=== PATIENT | female | born 1935 | race Caucasian/White ===

== ENCOUNTER 2017-07-21 10:06 | Day surgery (SDC) | payer MEDICARE ==
[~2017-07-21] VITALS: Ht 149.9 cm; Wt 65.8 kg
--- NOTE | ~2017-07-21 | EGD ---
EGD REPORT [facility] [address] [address] NAME: SAMMI WARREN : 39 STATUS : REG [facility] [place] PAT#: [id number] AGE: 82 ADM/REG DATE : 07/21/17 MR#: [id number] REPORT SERV DATE: 07/21/17 DICTATED BY: MAAME MEDRANO DATE: 07/21/17 REPORT STATUS : Draft TRANSCRIBED BY: [facility] DATE: 07/21/17 Endoscopy Center Patient Name: Sammi Warren Date of : 1935 Attending MD: MAAME MEDRANO MD Procedure Date No Time: 07/21/2017 Procedure: Upper GI endoscopy Indications: For therapy of pyloric stenosis, Follow-up of acute gastric ulcer Referring MD: CARINE CHAKRABORTY Medicines: Propofol per Anesthesia Complications: No immediate complications. Estimated blood loss: Minimal. Procedure: Pre-Anesthesia Assessment: - After reviewing the risks and benefits, the patient was deemed in satisfactory condition to undergo the procedure. - Prior to the procedure, a History and Physical was performed, and patient medications and allergies were reviewed. The patient's tolerance of previous anesthesia was also reviewed. The risks and benefits of the procedure and the sedation options and risks were discussed with the patient. All questions were answered, and informed consent was obtained. Prior Anticoagulants: The patient has taken no previous anticoagulant or antiplatelet agents. ASA Grade Assessment: III - A patient with severe systemic disease. After reviewing the risks and benefits, the patient was deemed in satisfactory condition to undergo the procedure. After obtaining informed consent, the endoscope was passed under direct vision. Throughout the procedure, the patient's blood pressure, pulse, and oxygen saturations were monitored continuously. The GIF [id number] was introduced through the mouth, and advanced to the third part of duodenum. The upper GI endoscopy was somewhat difficult due to pyloric stenosis which was traversed after balloon dilationi. The patient tolerated the procedure well. Findings: A non-obstructing Schatzki ring (acquired) was found at the gastroesophageal junction. A small hiatus hernia was present. Diffuse mild inflammation characterized by granularity was found in the gastric antrum. EGD REPORT [address] [address] NAME: SAMMI WARREN : 39 STATUS : REG [facility] [place] PAT#: [id number] AGE: 82 ADM/REG DATE : 07/21/17 MR#: [id number] REPORT SERV DATE: 07/21/17 DICTATED BY: MAAME MEDRANO DATE: 07/21/17 REPORT STATUS : Draft TRANSCRIBED BY: [facility] DATE: 07/21/17 A benign-appearing, intrinsic mild stenosis was found at the pylorus. This was traversed only after dilation. A TTS dilator was passed through the scope with a guidewire with fluroscopic guidance. Dilation with a 12-13.5-15 mm pyloric balloon dilator was performed under fluoroscopic guidance to a maximum inflation of 13.5 mm. Estimated blood loss was minimal. The previously noted active pyloric ulcer had healed. The examined duodenum was normal to the third portion. Impression: - Non-obstructing Schatzki ring. - Hiatus hernia. - Gastritis. - Gastric stenosis was found at the pylorus. Dilated. - Normal examined duodenum. Recommendation: - Discharge patient to home (ambulatory). - Full liquid diet today then return to previous diet. - Continue present medications including Protonix (pantoprazole) 40 mg daily. - Return to GI clinic PRN. - Patient has a contact number available for emergencies. The signs and symptoms of potential delayed complications were discussed with the patient. Return to normal activities tomorrow. Written discharge instructions were provided to the patient. Procedure Code(s): --- Professional --- 38664, Esophagogastroduodenoscopy, flexible, transoral; with dilation of gastric/duodenal stricture(s) (eg, balloon, bougie) 07413, Intraluminal dilation of strictures and/or obstructions (eg, esophagus), radiological supervision and interpretation Diagnosis Code(s): --- Professional --- K22.2, Esophageal obstruction K44.9, Diaphragmatic hernia without obstruction or gangrene K29.70, Gastritis, unspecified, without bleeding K31.1, Adult hypertrophic pyloric stenosis K25.3, Acute gastric ulcer without hemorrhage or perforation CPT copyright 2013 [employer]. All rights reserved. The codes documented in this report are preliminary and upon leak operator paraffin plant review may be revised to meet current compliance requirements. EGD REPORT [facility] [address] [place]. [address] NAME: SAMMI WARREN : 39 STATUS : REG [facility] [place] PAT#: [id number] AGE: 82 ADM/REG DATE : 07/21/17 MR#: [id number] REPORT SERV DATE: 07/21/17 DICTATED BY: MAAME MEDRANO DATE: 07/21/17 REPORT STATUS : Draft TRANSCRIBED BY: [employer] DATE: 07/21/17 MAAME MEDRANO MD 07/21/2017 12:49 PM This report has been signed electronically. Number of Addenda: 0 Note Initiated On: 07/21/2017 11:55 AM Scope Withdrawal Time 0 hours 0 minutes 0 seconds [facility] [place] [address]
[~2017-07-21 10:06] MED LIST: ACTOS15 PO; AMARYL4 PO; ATEN50 PO; AZO-STANDARD95 MG PO; CARTIA XT180 MG/24 PO; CAT1 PO; FLUCON1 PO; GLIMEPRIDE PO; HALF81 PO; LEVAQUIN750 MG PO; LIPITOR40 PO; LISINOPRIL40 MG PO; MAGNEBIND; MOMUD PO; POTASSIUM PO; PROTONIX PO; SITAGLIPTIN PO; SPIRO25 PO; SPIRONOLACTONE PO
== END 2017-07-21 23:59 | disposition home or self-care (01) ==
LOC: DMU 10:06
PROVIDERS: Internal Medicine Gastroenterology
PROC: 0D778ZZ Dilation of Stomach, Pylorus, Via Natural or Artificial Opening Endoscopic (ICD-10-PCS; principal; 2017-07-21 15:00)
DX: K22.2 Esophageal obstruction (principal); K44.9 Diaphragmatic hernia without obstruction or gangrene; K31.1 Adult hypertrophic pyloric stenosis; K29.70 Gastritis, unspecified, without bleeding; I11.0 Hypertensive heart disease with heart failure; I50.9 Heart failure, unspecified; E11.9 Type 2 diabetes mellitus without complications; J44.9 Chronic obstructive pulmonary disease, unspecified; G25.81 Restless legs syndrome; F17.210 Nicotine dependence, cigarettes, uncomplicated; Z88.5 Allergy status to narcotic agent; Z79.84 Long term (current) use of oral hypoglycemic drugs; Z90.710 Acquired absence of both cervix and uterus; Z98.51 Tubal ligation status; Z79.899 Other long term (current) drug therapy
CPT/HCPCS: 76000; 82962; C1726